=== PATIENT | female | born 1975 | race Caucasian/White ===

== ENCOUNTER 2022-06-10 01:30 | Inpatient (IN) ==
[2022-06-10] MEDS ORDERED: Naloxone 0.4 MG/ML INJ IVP PRN (05:42)
[2022-06-10] MEDS ORDERED: Acetaminophen 325 MG TABLET PO PRN (05:42)
[2022-06-10] MEDS ORDERED: Ondansetron 4 MG/2 ML VIAL IVP PRN (05:42)
[2022-06-10] MEDS ORDERED: D5% in Water 1,000 ML IVC PRN (06:20)
[2022-06-10] MEDS ORDERED: Dextrose Gel 15 GM/37.5 ML TUBE PO PRN ×2 (06:20)
[2022-06-10] MEDS ORDERED: *HR* Dextrose 50 % in Water (Syg) 50 ML SYRINGE IVP PRN (06:20)
[2022-06-10 06:32] LABS: Immature Granulocytes % 0.3 % (0-4); Mean Platelet Volume 9.8 fL (9.4-12.4)
[2022-06-10 06:33] LABS: Basophils % 0.4 %; Eosinophils # 0.3 K/mcL (0.0-0.6); Eosinophils % 2.9 %; Hematocrit 25.3 % (35.3-44.9); Hemoglobin 7.3 g/dL (11.5-15.4); Lymphocytes % 32.8 %; Mean Corpuscular HGB Conc 28.9 g/dL (31.6-35.5); Mean Corpuscular Hemoglobin 19.6 pg (28.0-33.3); Mean Corpuscular Volume 67.8 fL (83.0-100.0); Monocytes # 0.6 K/mcL (0.0-1.3); Monocytes % 6.2 %; Neutrophils # 5.2 K/mcL (1.6-8.9); Platelet Count 414 K/mcL (140-400); Red Blood Count 3.73 M/mcL (3.82-4.97); Red Cell Distribution Width 18.9 % (11.5-14.5); Segmented Neutrophils % 57.4 %
[2022-06-10 06:41] LABS: INR 5.2; Prothrombin Time 57.2 Seconds (9.4-12.1)
[2022-06-10 06:50] LABS: BUN/Creatinine Ratio 21 (6-26); Blood Urea Nitrogen 17 mg/dL (6-20); Calcium 8.5 mg/dL (8.6-10.3); Carbon Dioxide 22 mEq/L (23-29); Chloride 106 mEq/L (98-107); Glucose 210 mg/dL (70-105); Osmolality,Calculated 286 (280-300); Sodium 134 mEq/L (136-145)
[2022-06-10 06:52] LABS: Hypochromasia Present (Not Present); Microcytosis Present (Not Present); Platelet Estimate Normal (Normal)
[2022-06-10] MEDS ORDERED: 0.9 % Sodium Chloride 250 ML IVC SCH (07:00)
[2022-06-10] MEDS: Insulin LISPRO 300 UNITS/3 ML VIAL SUBQ SCH ×6 (07:44→20:48)
[2022-06-10] MEDS: Ringers Solution, Lactated 1,000 ML IVC SCH ×2 (12:00→17:35)
[2022-06-10] MEDS: Insulin DETEMIR 100 UNIT/ML X5UNITS SUBQ SCH (12:51)
[2022-06-10 16:06] LABS: Hematocrit 24.5 % (35.3-44.9); Hemoglobin 7.5 g/dL (11.5-15.4)
[2022-06-10 16:15] LABS: Prothrombin Time 21.9 Seconds (9.4-12.1)
[2022-06-10] MEDS ORDERED: Warfarin perPT PO PRN (18:00)
[2022-06-10] MEDS ORDERED: Insulin DETEMIR 100 UNIT/ML X5UNITS SUBQ SCH (21:00)
[2022-06-10 21:11] LABS: Hematocrit 16.6 % (35.3-44.9)
[2022-06-11 02:38] LABS: Basophils % 0.5 %; Eosinophils # 0.3 K/mcL (0.0-0.6); Eosinophils % 3.7 %; Hematocrit 24.8 % (35.3-44.9); Immature Granulocytes % 0.3 % (0-4); Lymphocytes % 37.9 %; Mean Corpuscular HGB Conc 30.6 g/dL (31.6-35.5); Mean Corpuscular Hemoglobin 21.6 pg (28.0-33.3); Mean Corpuscular Volume 70.5 fL (83.0-100.0); Mean Platelet Volume 9.6 fL (9.4-12.4); Monocytes # 0.7 K/mcL (0.0-1.3); Monocytes % 8.6 %; Neutrophils # 3.9 K/mcL (1.6-8.9); Platelet Count 345 K/mcL (140-400); Red Blood Count 3.52 M/mcL (3.82-4.97); Red Cell Distribution Width 21.3 % (11.5-14.5); White Blood Count 7.9 K/mcL (4.3-11.1)
[2022-06-11 02:39] LABS: Hemoglobin 7.6 g/dL (11.5-15.4)
[2022-06-11 02:41] LABS: INR 1.4; Prothrombin Time 15.4 Seconds (9.4-12.1)
[2022-06-11 02:54] LABS: Calcium 8.2 mg/dL (8.6-10.3); Magnesium 1.9 mg/dL (1.6-2.6); Potassium 4.2 mEq/L (3.5-5.1)
[2022-06-11] MEDS: Ringers Solution, Lactated 1,000 ML IVC SCH ×2 (07:10→15:00)
[2022-06-11] MEDS: Insulin LISPRO 300 UNITS/3 ML VIAL SUBQ SCH ×7 (08:55→22:11)
[2022-06-11] MEDS: lisinopriL 5 MG TABLET PO SCH (08:57)
[2022-06-11] MEDS: Insulin DETEMIR 100 UNIT/ML X5UNITS SUBQ SCH ×2 (08:57→22:11)
[2022-06-11] MEDS: Metoprolol XL (24 HR) Succ 50 MG TAB.ER.24H PO SCH (08:57)
[2022-06-11] MEDS ORDERED: *HR* Heparin 5,000 UNIT/ML VIAL IVP PRN ×2 (11:27)
[2022-06-11 12:09] LABS: Hematocrit 27.9 % (35.3-44.9); Hemoglobin 8.7 g/dL (11.5-15.4); Mean Corpuscular HGB Conc 31.2 g/dL (31.6-35.5); Mean Corpuscular Hemoglobin 22.5 pg (28.0-33.3); Mean Corpuscular Volume 72.3 fL (83.0-100.0); Mean Platelet Volume 9.6 fL (9.4-12.4); Platelet Count 331 K/mcL (140-400); Red Blood Count 3.86 M/mcL (3.82-4.97); Red Cell Distribution Width 21.4 % (11.5-14.5); White Blood Count 9.7 K/mcL (4.3-11.1)
[2022-06-11 12:19] LABS: Heparin anti-factor XA UFH 0.05 IU/mL (0.30-0.70)
[2022-06-11 12:20] LABS: INR 1.2; Prothrombin Time 13.5 Seconds (9.4-12.1)
[2022-06-11] MEDS: Heparin 25,000UNIT/250ML 1/2NS 25,000 UNIT/250 ML IV.SOLN IVC SCH (16:30)
[2022-06-11 17:38] LABS: Hemoglobin 8.2 g/dL (11.5-15.4)
[2022-06-11] MEDS ORDERED: *HR* Warfarin 5 MG TABLET PO ONE (20:00)
[2022-06-12] MEDS: Ringers Solution, Lactated 1,000 ML IVC SCH ×3 (01:49→19:55)
[2022-06-12] MEDS: Heparin 25,000UNIT/250ML 1/2NS 25,000 UNIT/250 ML IV.SOLN IVC SCH ×2 (06:04→16:37)
[2022-06-12 06:43] LABS: Basophils % 0.4 %; Eosinophils # 0.5 K/mcL (0.0-0.6); Hematocrit 24.8 % (35.3-44.9); Hemoglobin 7.5 g/dL (11.5-15.4); Immature Granulocytes % 0.3 % (0-4); Lymphocytes # 3.1 K/mcL (0.6-4.6); Lymphocytes % 31.7 %; Mean Corpuscular Hemoglobin 22.6 pg (28.0-33.3); Mean Corpuscular Volume 75.3 fL (83.0-100.0); Mean Platelet Volume 9.8 fL (9.4-12.4); Monocytes # 0.6 K/mcL (0.0-1.3); Monocytes % 6.3 %; Neutrophils # 5.6 K/mcL (1.6-8.9); Platelet Count 351 K/mcL (140-400); Red Blood Count 3.32 M/mcL (3.82-4.97); Red Cell Distribution Width 21.6 % (11.5-14.5); Segmented Neutrophils % 56.3 %; White Blood Count 9.9 K/mcL (4.3-11.1)
[2022-06-12 07:08] LABS: Calcium 8.3 mg/dL (8.6-10.3); Potassium 4.4 mEq/L (3.5-5.1)
[2022-06-12] MEDS: Metoprolol XL (24 HR) Succ 50 MG TAB.ER.24H PO SCH (08:53)
[2022-06-12] MEDS: lisinopriL 5 MG TABLET PO SCH (08:53)
[2022-06-12] MEDS: Insulin LISPRO 300 UNITS/3 ML VIAL SUBQ SCH ×7 (08:53→19:42)
[2022-06-12] MEDS ORDERED: Insulin DETEMIR 100 UNIT/ML X5UNITS SUBQ SCH (09:00)
[2022-06-12] MEDS: Insulin DETEMIR 100 UNIT/ML X5UNITS SUBQ SCH ×3 (09:12→20:16)
[2022-06-12 09:13] LABS: INR 1.2; Prothrombin Time 13.5 Seconds (9.4-12.1)
[2022-06-12 13:24] LABS: Hematocrit 23.8 % (35.3-44.9); Hemoglobin 7.3 g/dL (11.5-15.4)
[2022-06-12] MEDS ORDERED: *HR* Warfarin 5 MG TABLET PO ONE (18:00)
[2022-06-12 19:23] LABS: Hemoglobin 7.2 g/dL (11.5-15.4)
[2022-06-13] MEDS: Heparin 25,000UNIT/250ML 1/2NS 25,000 UNIT/250 ML IV.SOLN IVC SCH ×2 (01:26→18:03)
[2022-06-13 01:28] LABS: Basophils % 0.4 %; Eosinophils # 0.5 K/mcL (0.0-0.6); Eosinophils % 4.9 %; Hematocrit 20.1 % (35.3-44.9); Hemoglobin 6.1 g/dL (11.5-15.4); Immature Granulocytes % 0.5 % (0-4); Lymphocytes # 3.9 K/mcL (0.6-4.6); Lymphocytes % 35.5 %; Mean Corpuscular HGB Conc 30.3 g/dL (31.6-35.5); Mean Corpuscular Hemoglobin 22.4 pg (28.0-33.3); Mean Corpuscular Volume 73.9 fL (83.0-100.0); Mean Platelet Volume 9.9 fL (9.4-12.4); Monocytes # 0.6 K/mcL (0.0-1.3); Monocytes % 5.6 %; Neutrophils # 5.8 K/mcL (1.6-8.9); Platelet Count 351 K/mcL (140-400); Red Blood Count 2.72 M/mcL (3.82-4.97); Red Cell Distribution Width 22.3 % (11.5-14.5); Segmented Neutrophils % 53.1 %; White Blood Count 10.8 K/mcL (4.3-11.1)
[2022-06-13 01:43] LABS: INR 1.2; Prothrombin Time 13.4 Seconds (9.4-12.1)
[2022-06-13 01:54] LABS: Calcium 8.2 mg/dL (8.6-10.3); Potassium 3.9 mEq/L (3.5-5.1)
[2022-06-13] MEDS ORDERED: 0.9 % Sodium Chloride 250 ML IVC SCH (07:30)
[2022-06-13] MEDS: Metoprolol XL (24 HR) Succ 50 MG TAB.ER.24H PO SCH (08:45)
[2022-06-13] MEDS: lisinopriL 5 MG TABLET PO SCH (08:45)
[2022-06-13] MEDS: Insulin DETEMIR 100 UNIT/ML X5UNITS SUBQ SCH ×2 (08:46→20:58)
[2022-06-13] MEDS: Insulin LISPRO 300 UNITS/3 ML VIAL SUBQ SCH ×7 (08:47→20:51)
[2022-06-13] MEDS: Ringers Solution, Lactated 1,000 ML IVC SCH ×2 (09:14→18:02)
[2022-06-13 12:29] LABS: Hematocrit 23.3 % (35.3-44.9); Hemoglobin 7.4 g/dL (11.5-15.4)
[2022-06-13 17:55] LABS: Hematocrit 23.1 % (35.3-44.9); Hemoglobin 7.3 g/dL (11.5-15.4)
[2022-06-13] MEDS ORDERED: *HR* Warfarin 5 MG TABLET PO ONE (18:00)
[2022-06-14] MEDS: Ringers Solution, Lactated 1,000 ML IVC SCH ×3 (04:32→20:10)
[2022-06-14 05:36] LABS: Hematocrit 20.4 % (35.3-44.9); Hemoglobin 6.4 g/dL (11.5-15.4); Mean Corpuscular HGB Conc 31.4 g/dL (31.6-35.5); Mean Corpuscular Hemoglobin 24.1 pg (28.0-33.3); Mean Corpuscular Volume 76.7 fL (83.0-100.0); Mean Platelet Volume 10.1 fL (9.4-12.4); Platelet Count 322 K/mcL (140-400); Red Blood Count 2.66 M/mcL (3.82-4.97); Red Cell Distribution Width 22.7 % (11.5-14.5); White Blood Count 8.9 K/mcL (4.3-11.1)
[2022-06-14 05:40] LABS: INR 1.6; Prothrombin Time 17.7 Seconds (9.4-12.1)
[2022-06-14 05:53] LABS: BUN/Creatinine Ratio 16 (6-26); Blood Urea Nitrogen 12 mg/dL (6-20); Calcium 8.2 mg/dL (8.6-10.3); Carbon Dioxide 25 mEq/L (23-29); Chloride 110 mEq/L (98-107); Glucose 117 mg/dL (70-105); Osmolality,Calculated 289 (280-300); Potassium 3.9 mEq/L (3.5-5.1); Sodium 139 mEq/L (136-145)
[2022-06-14] MEDS ORDERED: 0.9 % Sodium Chloride 250 ML IVC SCH (07:00)
[2022-06-14] MEDS: Metoprolol XL (24 HR) Succ 50 MG TAB.ER.24H PO SCH (08:38)
[2022-06-14] MEDS: lisinopriL 5 MG TABLET PO SCH (08:38)
[2022-06-14] MEDS: Insulin DETEMIR 100 UNIT/ML X5UNITS SUBQ SCH ×2 (08:38→21:08)
[2022-06-14] MEDS: Insulin LISPRO 300 UNITS/3 ML VIAL SUBQ SCH ×7 (08:39→21:08)
[2022-06-14] MEDS: Heparin 25,000UNIT/250ML 1/2NS 25,000 UNIT/250 ML IV.SOLN IVC SCH (14:17)
[2022-06-14 14:18] LABS: Hemoglobin 8.2 g/dL (11.5-15.4)
[2022-06-14] MEDS: Iron Sucrose Complex 200 MG in 0.9 % Sodium Chloride 100 ML IVPB SCH (14:18)
[2022-06-14] MEDS ORDERED: *HR* Warfarin 5 MG TABLET PO ONE (18:00)
[2022-06-15] MEDS: Heparin 25,000UNIT/250ML 1/2NS 25,000 UNIT/250 ML IV.SOLN IVC SCH ×2 (00:38→09:01)
[2022-06-15 01:56] LABS: Hematocrit 22.5 % (35.3-44.9); Mean Corpuscular HGB Conc 31.1 g/dL (31.6-35.5); Mean Corpuscular Hemoglobin 25.3 pg (28.0-33.3); Mean Corpuscular Volume 81.2 fL (83.0-100.0); Platelet Count 298 K/mcL (140-400); Red Blood Count 2.77 M/mcL (3.82-4.97); Red Cell Distribution Width 23.3 % (11.5-14.5); White Blood Count 8.7 K/mcL (4.3-11.1)
[2022-06-15 02:02] LABS: INR 1.9; Prothrombin Time 20.9 Seconds (9.4-12.1)
[2022-06-15 02:14] LABS: BUN/Creatinine Ratio 15 (6-26); Blood Urea Nitrogen 10 mg/dL (6-20); Calcium 7.8 mg/dL (8.6-10.3); Carbon Dioxide 22 mEq/L (23-29); Chloride 110 mEq/L (98-107); Glucose 154 mg/dL (70-105); Osmolality,Calculated 292 (280-300); Potassium 3.9 mEq/L (3.5-5.1); Sodium 140 mEq/L (136-145)
[2022-06-15] MEDS ORDERED: 0.9 % Sodium Chloride 250 ML IVC SCH (07:00)
[2022-06-15] MEDS: Metoprolol XL (24 HR) Succ 50 MG TAB.ER.24H PO SCH (07:55)
[2022-06-15] MEDS: Insulin LISPRO 300 UNITS/3 ML VIAL SUBQ SCH ×7 (07:55→21:58)
[2022-06-15] MEDS: lisinopriL 5 MG TABLET PO SCH (07:56)
[2022-06-15] MEDS: Ringers Solution, Lactated 1,000 ML IVC SCH ×2 (08:46→17:05)
[2022-06-15] MEDS: Insulin DETEMIR 100 UNIT/ML X5UNITS SUBQ SCH ×2 (08:50→21:58)
[2022-06-15] MEDS: Iron Sucrose Complex 200 MG in 0.9 % Sodium Chloride 100 ML IVPB SCH (08:59)
[2022-06-15 13:57] LABS: Hematocrit 26.9 % (35.3-44.9)
[2022-06-15 14:23] LABS: Hemoglobin 8.6 g/dL (11.5-15.4)
[2022-06-15] MEDS ORDERED: *HR* Warfarin 3 MG TABLET PO ONE (18:00)
[2022-06-16] MEDS: Heparin 25,000UNIT/250ML 1/2NS 25,000 UNIT/250 ML IV.SOLN IVC SCH (04:18)
[2022-06-16] MEDS: Ringers Solution, Lactated 1,000 ML IVC SCH (04:18)
[2022-06-16 06:31] LABS: Hematocrit 25.2 % (35.3-44.9); Hemoglobin 7.9 g/dL (11.5-15.4); Mean Corpuscular HGB Conc 31.3 g/dL (31.6-35.5); Mean Corpuscular Hemoglobin 25.6 pg (28.0-33.3); Mean Corpuscular Volume 81.8 fL (83.0-100.0); Mean Platelet Volume 10.2 fL (9.4-12.4); Platelet Count 316 K/mcL (140-400); Red Blood Count 3.08 M/mcL (3.82-4.97); Red Cell Distribution Width 23.8 % (11.5-14.5); White Blood Count 9.4 K/mcL (4.3-11.1)
[2022-06-16 06:48] LABS: BUN/Creatinine Ratio 12 (6-26); Blood Urea Nitrogen 9 mg/dL (6-20); Calcium 8.6 mg/dL (8.6-10.3); Carbon Dioxide 27 mEq/L (23-29); Chloride 109 mEq/L (98-107); Glucose 136 mg/dL (70-105); Osmolality,Calculated 291 (280-300); Potassium 3.9 mEq/L (3.5-5.1); Sodium 140 mEq/L (136-145)
[2022-06-16] MEDS: Insulin LISPRO 300 UNITS/3 ML VIAL SUBQ SCH ×4 (08:10→12:06)
[2022-06-16] MEDS: lisinopriL 5 MG TABLET PO SCH (09:16)
[2022-06-16] MEDS: Metoprolol XL (24 HR) Succ 50 MG TAB.ER.24H PO SCH (09:16)
[2022-06-16] MEDS: Insulin DETEMIR 100 UNIT/ML X5UNITS SUBQ SCH (09:16)
[2022-06-16] MEDS: Iron Sucrose Complex 200 MG in 0.9 % Sodium Chloride 100 ML IVPB SCH (09:17)
[2022-06-16 10:53] VITALS: TEMP 98.4
[2022-06-16 13:54] LABS: Hematocrit 24.9 % (35.3-44.9); Hemoglobin 7.8 g/dL (11.5-15.4); Mean Corpuscular HGB Conc 31.3 g/dL (31.6-35.5); Mean Corpuscular Hemoglobin 25.8 pg (28.0-33.3); Mean Corpuscular Volume 82.5 fL (83.0-100.0); Mean Platelet Volume 10.2 fL (9.4-12.4); Platelet Count 312 K/mcL (140-400); Red Blood Count 3.02 M/mcL (3.82-4.97); Red Cell Distribution Width 24.1 % (11.5-14.5); White Blood Count 8.8 K/mcL (4.3-11.1)
[2022-06-16 14:08] LABS: INR 2.1; Prothrombin Time 23.3 Seconds (9.4-12.1)
[2022-06-16 14:28] VITALS: BP 139/68; PULSE 76; O2SAT 97
[2022-06-16] MEDS ORDERED: *HR* Warfarin 5 MG TABLET PO ONE (18:00)
[2022-06-16] MEDS ORDERED: *HR* Warfarin 3 MG TABLET PO ONE (18:00)
== END 2022-06-16 16:43 | disposition home or self-care (01) | DRG 760 ==
LOC: 3BNU → SUATTDRO 05:07
PROVIDERS: ADMIT Pharmacist; ATTEND Internal Medicine